=== PATIENT | male | born 1965 | race Caucasian/White ===

== ENCOUNTER 2024-12-22 01:16 | Emergency (ER) | payer BC ==
[~2024-12-22] VITALS: Ht 167.6 cm; Wt 65.9 kg
[2024-12-22 01:18] VITALS: TEMP 98.2
[2024-12-22 03:11] VITALS: BP 124/77; PULSE 69; RESP 16; O2SAT 99
--- NOTE | 2024-12-22 06:47 | Physician Documentation ---
History of Present Illness ~ Chief Complaint: Laceration Stated Complaint: FINGER LAC Time Seen by MD: 06:06 HPI 59-year-old male presenting with a right hand index finger laceration. Patient states that he mistakenly cut himself with a quarter trimmer yesterday evening. Miracle fernandez started bleeding profusely and he rinsed it out and applied pressure and came to the emergency department. He states that he is not sure if his tetanus is up to date. He can bend and extend his finger but states that it hurts. Tetanus Within 5 Years: No Medication Reconciliation Allergies: Coded Allergies: No Known Allergies (Unverified , 12/22/24) Review of Systems All Other Systems at this time: Reviewed and Negative Physical Exam Vital Signs: Temperature: 98.2, Source: Oral, Heart Rate: 69, Respiratory Rate: 16, BP: 124/77, Pulse Oximetry: 99, Weight: 65.910 Oxygen Flow Rate: 0 Physical Exam I have reviewed the triage vitals. CONST: Well developed and well nourished. In no acute distress HENT: Head Atraumatic EYES: Pupils are equal, round and reactive to light. Normal conjunctiva NECK: Normal range of motion. Supple. CARDIO: Normal rate and regular rhythm. No murmurs, rubs, or gallops. S1, S2. PULM/CHEST: No respiratory distress. Lungs clear to auscultation. No wheeze ABD: Soft and nontender. Nondistended. Bowel sounds normal. No guarding. : Exam deferred MSK: No edema. No deformity. Right hand- palmar aspect- there is a 1.5 cm flap laceration present over the middle phalanx of the index finger. There is no foreign body visualized. No tendon laceration. There is full range of motion on flexion and extension of the finger. NEURO: Alert and oriented to person, place and time. Moving all extremities. Normal sensation in all extremities including distal to the right hand index finger laceration SKIN: Warm and dry. PSYCH: Normal mood and affect. Good eye contact. Procedures Laceration/Wound Repair Laceration : Anesthesia: Lidocaine Prep: betadine Debrided: moderate Undermining: none Margins: flaps aligned Foreign Body: not identified Repaired: skin Wound Repaired With: sutures Suture Size/Type: 4-0, prolene Number of Superficial Sutures: 6 Dressing Applied: simple, bacitracin, non-adherent Tolerated Procedure Well?: yes, no complications Progress Results/Orders Results/Orders Completed Orders - DOROTA SIDDIQUI MD Tetanus/Pertuss/Diph Acell/Pf (Boostrix (12/22/24 06:50) Medications Received in ER Medications (Trade) Dose Ordered Sig/Ofelia Route PRN Reason Start Time Stop Time Status Last Admin Dose Admin (Boostrix vaccine syringe) 0.5 ml ONCE ONCE IMVAC 12/22/24 06:50 12/22/24 06:51 DC 12/22/24 06:59 0.5 ML Vital Signs 12/22/24 12/22/24 01:18 03:11 Temp 98.2 Pulse 74 69 Resp 16 16 B/P (MAP) 126/87 124/77 (93) Pulse Ox 98 99 O2 Flow Rate 0 0 Medical Decision Making Additional Comments 59-year-old male presenting with a right hand index finger laceration. The laceration was repaired-please see procedure note. Patient advised on wound care. Patient is leaving out of town tomorrow but advised him to follow up in 2-3 days for a wound check with his own doctor or another emergency department. Also advised on following up there in 7-10 days for suture removal. Patient advised to keep the extremity elevated to reduce swelling and pain. May take Ty lenol or ibuprofen [id number] as needed for pain control. Return to the ED sooner with any type of acutely worsening symptoms. Departure Disposition: 01 HOME / SELF CARE / HOMELESS Impression: Primary Impression: Finger laceration Condition: Improved Discharge Instructions: Laceration Care, Adult, [id number] Additional Instructions: Please keep wound clean and dry. Follow up with your own doctor or another emergency department in 2-3 days for a wound check. Follow up with your own doctor or another emergency department in 7-10 days for suture removal. Please keep extremity elevated to reduce pain and swelling. If you notice any type of drainage from the wound, increased bleeding, redness and swelling please follow up with her doctor or emergency department immediately. You may take Tylenol or ibuprofen [id number] as needed for pain. Referrals: NO PRIMARY CARE PROVIDER (PCP) Signature Scribe Signature: n Attestation: DORTOA Whalen MD December 22, 2024 06:47
[2024-12-22] MEDS: TETanus/Pertussis (Acell)/Diphther VAC/PF (Tdap-Adult) 0.5ml syringe IMVAC ONE (06:59)
[2024-12-22] MEDS: bacitracin 15gm ointment TP ONE (08:23)
== END 2024-12-22 08:25 | disposition home or self-care (01) ==
LOC: ER 01:18
DX: S61.210A Laceration without foreign body of right index finger without damage to nail, initial encounter (principal); X58.XXXA Exposure to other specified factors, initial encounter; Y93.89 Activity, other specified; Y92.89 Other specified places as the place of occurrence of the external cause; Y99.8 Other external cause status
CPT/HCPCS: 12001; 90471; 90715; 99283; A6258